=== PATIENT | male | born 1955 | race Caucasian/White ===

== ENCOUNTER 2022-11-10 10:33 | Emergency (ER) | payer MEDICARE, OTHER ==
[~2022-11-10] VITALS: Ht 175.3 cm; Wt 76.2 kg
--- NOTE | 2022-11-10 10:50 | NUR ---
[id number] LEFT SHOULDER PAIN S/P FALL ON 6 FT LADDER. DENIES HEAD/NECK INJURY DENIES LOC. CMS INTACT ON AFFECTED AREA.
--- NOTE | 2022-11-10 10:53 | NUR ---
DR GOTTLIEB AT BEDSIDE FOR EVAL
[2022-11-10] MEDS ORDERED: HYDROMORPHONE 1 MG/1 ML DISP.SYRIN IV ONE ×2 (11:00→16:00)
[2022-11-10] MEDS ORDERED: HYDROMORPHONE 1 MG/1 ML DISP.SYRIN ONE ×3 (11:09→15:40)
--- NOTE | 2022-11-10 11:22 | NUR ---
histology technician at bedside.
--- NOTE | 2022-11-10 12:48 | NUR ---
primary contact info. Dr. Shaw Bentley [phone] (patient's brother)
--- NOTE | 2022-11-10 12:55 | NUR ---
CALLED [facility] [phone] RODRIGUEZ MECHANICAL RELIABILITY ENGINEER WILL BE PAGED PER ISAAK.
[2022-11-10] MEDS: HYDROMORPHONE 1 MG/1 ML DISP.SYRIN IV PRN ×2 (13:15→15:44)
--- NOTE | 2022-11-10 13:35 | NUR ---
DR. GOTTLIEB SPEAKING WITH DR. RODRIGUEZ.
--- NOTE | 2022-11-10 13:40 | NUR ---
Applied ice pack at L shoulder.
--- NOTE | 2022-11-10 13:44 | NUR ---
X-RAY IMAGES SENT TO DR. RODRIGUEZ.
--- NOTE | 2022-11-10 14:07 | NUR ---
Covid swab done and sent to lab.
[2022-11-10] MEDS ORDERED: ASPI-1169 PO (14:14)
[2022-11-10] MEDS ORDERED: UBID100C13 PO (14:14)
[2022-11-10] MEDS ORDERED: ASPI-966 PO (14:14)
[2022-11-10] MEDS ORDERED: PANT40TA49 PO (14:14)
[2022-11-10] MEDS ORDERED: AMLO-212 PO (14:14)
[2022-11-10] MEDS ORDERED: FOLI0.4T6 PO (14:14)
[2022-11-10] MEDS ORDERED: RIZA10TA27 PO (14:14)
[2022-11-10] MEDS ORDERED: CARB200T8 PO (14:14)
[2022-11-10] MEDS ORDERED: CARB200T PO (14:14)
[2022-11-10] MEDS ORDERED: PSYL3.4P6 PO (14:14)
[2022-11-10] MEDS ORDERED: EZET10TA32 PO (14:14)
[2022-11-10] MEDS ORDERED: ROSU40TA23 PO (14:14)
[2022-11-10] MEDS ORDERED: TAMS-12 PO (14:14)
[2022-11-10] MEDS ORDERED: CYAN-51 PO (14:14)
--- NOTE | 2022-11-10 14:38 | NUR ---
CALLED [facility] [phone] RODRIGUEZ PAGED.
--- NOTE | 2022-11-10 14:53 | NUR ---
DR. GOTTLIEB SPEAKING TO DR. RODRIGUEZ.
--- NOTE | 2022-11-10 14:57 | NUR ---
Dr. Barker at bedside.
[2022-11-10 15:03] LABS: BASOPHILS % (AUTO) 0.1 % (0.0-2.0); HEMATOCRIT 46 % (39-51); HEMOGLOBIN 14.8 g/dL (13.5-17.5); LYMPHOCYTES # (AUTO) 0.3 K/uL (0.8-4.8); MEAN CORPUSCULAR HGB CONC 33 g/dl (31.0-36.0); MEAN CORPUSCULAR VOLUME 91 fL (80-96); MONOCYTES # (AUTO) 0.7 K/uL (0.1-1.30); MONOCYTES % (AUTO) 4.7 % (2.0-12.0); NEUTROPHILS # (AUTO) 14.4 K/uL (1.8-8.9); NEUTROPHILS % (AUTO) 93.2 % (43.0-81.0); PLATELET COUNT (AUTO) 200 K/uL (150-450); WHITE BLOOD COUNT (AUTO) 15.4 K/uL (4.3-11.0)
[2022-11-10 15:25] LABS: CALCIUM, SERUM 8.3 mg/dL (8.5-10.1); CREATININE 1.1 mg/dL (0.6-1.3)
[2022-11-10] MEDS ORDERED: DOCU-141 PO ×3 (15:33→17:23)
[2022-11-10] MEDS ORDERED: IBUP-1955 PO ×3 (15:33→17:23)
[2022-11-10] MEDS ORDERED: HYDR-3980 PO ×3 (15:33→17:23)
--- NOTE | 2022-11-10 15:40 | NUR ---
Dr. Barker at bedside.
--- NOTE | 2022-11-10 15:59 | NUR ---
Called veterinary laboratory technician and requested Pt's image copy of Xray result.
--- NOTE | 2022-11-10 16:15 | NUR ---
Shoulder Splint applied by Dr. Barker and assisted by EMT.
--- NOTE | 2022-11-10 16:20 | NUR ---
Non-admin: Repeated order by . Already gave PRN medication Dilaudid 1mg/ml.
--- NOTE | 2022-11-10 16:35 | NUR ---
IV removed. Catheter intact and site benign. Pressure and 4x4 applied to site. No bleeding noted.Patient discharged to home in stable condition. Written and verbal after care instructions given. Patient verbalizes understanding of instruction.
[2022-11-10 17:06] VITALS: BP 110/62
== END 2022-11-10 17:07 | disposition home or self-care (01) ==
LOC: ER 10:35
DX: S42.202A Unspecified fracture of upper end of left humerus, initial encounter for closed fracture (principal); S52.022A Displaced fracture of olecranon process without intraarticular extension of left ulna, initial encounter for closed fracture; W11.XXXA Fall on and from ladder, initial encounter; Y93.89 Activity, other specified; Y92.019 Unspecified place in single-family (private) house as the place of occurrence of the external cause; Z79.82 Long term (current) use of aspirin; Z20.822 Contact with and (suspected) exposure to COVID-19
CPT/HCPCS: 99284; 96374; 29105; 87426; 73080; 73030; 73100; 85025; 80048; 36415; 85730; 87081; 86850; 96376; J1170 ×3; C9803